=== PATIENT | female | born 1975 | race Caucasian/White ===

== ENCOUNTER → 2017-10-04 | Day surgery (SDC) | payer BC ==
[~2017-10-04] VITALS: Ht 157.5 cm; Wt 60.8 kg
[~2017-10-04] MED LIST: *MEPERIDINE 25 MG INJ VIAL PERIprocedural Use ONLY ONE; *morphine SULFATE 4 MG/ML PERIprocedure ONLY ONE; ACETAMINOPHEN 1000 MG/100 ML 100 ML IV ONE; BUPIVACAINE HCL PF 0.25% 30 ML VIAL ONE; BUPIVACAINE HCL PF 0.5% 10 ML VIAL INFIL ONE; CHLORHEXIDINE GLUCONATE 2 % 1 PACK (2 CLOTHS) TOPICAL PRN; DEXAMETHASONE SOD PHOS 4 MG/ML VIAL IV ONE; DEXMEDETOMIDINE HCL 200 MCG/2 ML VIAL ONE; DO NOT ADM ANY ANTICOAGULANT DRUGS PRN; FLUORESCEIN SOD 10% SOLN 500 MG/5 ML AMP ONE; GLYCOPYRROLATE 1 MG/5 ML SYRINGE IV PUSH ONE; KETOROLAC TROMETHAMINE 30 MG/ML (IVP) VIAL IV PUSH ONE; LACTATED RINGER'S 1000 ML INJ 1,000 ML IV ONE; LACTATED RINGER'S 1000 ML IV PRN; LIDOCAINE HCL 1% PF 5 ML SYRINGE OTHER ONE; METOPROLOL TARTRATE 25 MG TAB PO PRN; MIDAZOLAM HCL 2 MG/2 ML VIAL ONE; NEOSTIGMINE 5 MG/5 ML SYRINGE IV PUSH ONE; ONDANSETRON HCL 4 MG/2 ML VIAL IV ONE; PHENYLEPH/NS 1000 MCG/10 ML SYR IV ONE; POVIDONE IODINE 5% (ANTISEPSIS KIT) 4 APPLICATIONS EACH NARE PRN; PRENTAB72 PO; PROPOFOL 200 MG/20 ML AMP IV ONE; ROCURONIUM INJ 50 MG/5 ML SYRINGE IV PUSH ONE; SODIUM CHLORID 0.9% 500 ML IV PRN; SODIUM CHLORIDE 0.9% 20 ML VIAL ONE; VASOPRESSIN 20 UNITS/ML VIAL (IVTITR) ONE; ceFAZolin 2 GM PREMIX 50 ML IV SCH; diphenhydrAMINE HCL 50 MG/ML VIAL ONE; oxyCODONE/ACETAMINOPHEN 5 MG/325 MG TAB PO PRN
--- NOTE | 2017-10-04 05:52 | PD.OP ---
Operative Report Date of Surgery: Oct 04, 2017 Preoperative Diagnosis: (1) DUB (dysfunctional uterine bleeding) (2) Abnormal findings on diagnostic imaging of other specified body structures (3) Intramural leiomyoma of uterus (4) Abnormal histological findings in specimens from other organs, systems and tissues Postoperative Diagnosis: (1) DUB (dysfunctional uterine bleeding) (2) Abnormal findings on diagnostic imaging of other specified body structures (3) Intramural leiomyoma of uterus (4) Abnormal histological findings in specimens from other organs, systems and tissues (5) Left ovarian cyst Procedure: 1. laparoscopic supracervically hysterectomy 2. B salpingectomy 3. left cystectomy 4. lysis of adhesions Anesthesia: LOUIE Surgeon: Soledad Kirkpatrick [employer] Sales Representative(s): OR Staff Operation and Findings: IVF: 1500 ml LR + IV antibiotics given prior to surgery + Iridescent dye EBL : 150 ml UO: 300 ml Findings: 1. pelvic adhesions 2. enlarged, irregularly shaped uterus 3. large fibroids 4. left ovarian cyst Specimens: 1. uterus 2. fallopian tubes 3. left ovarian cyst Complications: none Condition: stable Disposition: PACU Descriptions of the procedure: I discussed the risks, benefits and alternatives of the procedure with the patient. Informed consent was obtained after questions were answered. She was then taken to the operating room with her IV running. She was placed in the supine position and was given general anesthesia without difficulties or complications. She was then placed in the dorsal lithotomy position and was prepped and draped in the usual sterile fashion. Attention was first turned to the patient's genital area. A bivalved speculum was introduced inside the patient's vagina. The anterior aspect of the cervix was grasped with a single tooth tenaculum for manipulation. The cervix was carefully dilated. A uterine manipulator was carefully introduced inside her uterus. The rest of the instruments were removed from the patient's vagina. A sterile blue towel was used to cover the perineum. Iridescent dye was given to patient. The surgeon changed gloves and attention was then turned to the patient's abdomen. A vertical umbilical incision was made with the scalpel. A 5 mm trocar was introduced inside the patient's abdomen under direct visualization. A pneumo -peritoneum was created with CO2 gas. Two 5 mm trocars and one 10 mm trocar were introduced inside the patient's abdomen under direct visualization in the lower right, left and mid abdomen. A survey of the patient's abdomen revealed normal anatomy. A survey of the patient's pelvis revealed the findings noted above. The round ligaments and the utero-ovarian ligaments were carefully and serially grasped, electrocauterized and cut with the Harmonic scalpel. Excellent hemostasis was noted. Lysis of adhesions was needed to return anatomy to normal in order to continue with the procedure. The fallopian tubes were carefully removed with Harmonic scalpel. The left ovary had a hemorrhagic cyst which was carefully removed. Excellent hemostasis was noted. The tissues along the uterus on both sides were serially grasped, electrocauterized and transected with the Harmonic scalpel. The ureters were noted to be away from the surgical site. The uterine vessels were skeletonized, electrocauterized with the Kleppinger and transected with the Harmonic scalpel. Good hemostasis was noted. Next, the bladder flap was created and the bladder was dissected off the lower uterine segment. Excellent hemostasis was noted. The uterine manipulator was removed. Iris loop was used to cut and electrocauterize the cervico-uterine junction. Good hemostasis was noted. The Kleppinger was used to electrocauterized the endocervix. The morcellator was introduced inside the abdomen under direct visualization and was used to cut and removed the uterus. The fallopian tubes and the ovarian cyst were carefully removed through the same port. Any remaining pieces of tissue were carefully removed and sent to Pathology. The surgical sites were noted to be hemostatic. Copious irrigation was done. Care was taken to ensure the removal of all small pieces of tissue which were left in the abdomen and pelvis after morcellation. The ureters were identified again and were found to be away from the surgical sites. There was no evidence of injury or blockage of the ureters or bladder. All of the instruments were removed from the patient's abdomen. The ports were also removed under direct visualization. Excellent hemostasis was noted. The CO2 gas was carefully expressed out of the patient's abdomen. The 10 mm fascial incision was reapproximated with a figure eight stitch of 0-Vicryl. The skin incisions were injected with 0.25 % Marcaine and were reapproximated with subcutaneous stitches of 4-0 Vicryl. Mastisol and steri strips were placed over the incisions. The patient tolerated the procedure well. She was successfully extubated and transferred to PACU in stable condition. Note: I discussed surgical procedures and surgical findings with patient's . His questions were answered. He verbalized understanding. Soledad Kirkpatrick MD Oct 04, 2017 05:52
[2017-10-04 12:40] VITALS: BP 130/65; PULSE 65; RESP 16; TEMP 98.5; O2SAT 100
== END | disposition home or self-care (01) ==
LOC: HSDC 05:46
PROVIDERS: ATTEND Obstetrics & Gynecology
DX: N93.8 Other specified abnormal uterine and vaginal bleeding (principal); D25.1 Intramural leiomyoma of uterus; N83.202 Unspecified ovarian cyst, left side; N83.8 Other noninflammatory disorders of ovary, fallopian tube and broad ligament; N73.6 Female pelvic peritoneal adhesions (postinfective)
CPT/HCPCS: 00840; 58542; 58662; 88304; 88307; J0131; J0690; J1100; J1200; J1885; J2175; J2250; J2270; J2370; J2405; J2710; J3010; J7120